=== PATIENT | female | born 1960 | race Caucasian/White ===

== ENCOUNTER → 2023-06-11 | Outpatient (CLI) | payer BC, MEDICARE ==
[2023-06-11 10:50] LABS: INR 0.9 (<1.2); Partial Thromboplastin Time 22.2 sec (22.0-30.0); Prothrombin Time 9.9 sec (9.0-12.0)
[2023-06-11 18:18] LABS: HGB 13.2 d/dL (12.0-15.0); MCH 29.7 pg (27.0-32.0); MCHC 31.4 d/dL (32.0-37.0); MCV 94.6 FL (80.0-97.0); Mean Platelet Volume 10.4 FL (9.5-12.2); NRBC Per 100 WBC 0 X 10*3/uL (0.00-0.01); Platelet Count 235 X 10*3/uL (140-440); RBC 4.44 X 10*6/uL (4.10-5.20); RDW 15.5 % (11.5-14.5); WBC 9.08 X 10*3/uL (4.50-10.00)
[2023-06-11 18:30] LABS: ALT 39 U/L (8-44); AST 33 U/L (13-35); Albumin 4.9 d/dL (3.8-4.9); Albumin/Globulin Ratio 1.69 Ratio (1.60-3.17); Alkaline Phosphatase 84 U/L (41-126); BUN/Creat Ratio 20.22 Ratio (12.00-20.00); Blood Urea Nitrogen 36.4 mg/dL (9.0-27.0); Calcium 10.5 mg/dL (8.7-10.3); Carbon Dioxide 23.9 mmol/L (21.6-31.8); Chloride 107 mmol/L (96-109); Globulin 2.9 d/dL (1.6-3.3); Glucose 93 mg/dL (70-110); Potassium 4.6 mmol/L (3.5-5.5); Sodium 143 mmol/L (135-145); Total Bilirubin 0.4 mg/dL (0.3-1.2); Total Protein 7.8 d/dL (6.2-8.2)
[2023-06-11 22:42] LABS: Appearance,Urine Clear (Clear); Bilirubin,Urine Negative (Negative); Blood,Urine Negative (Negative); Color,Urine Yellow (Yellow); Ketones,Urine Negative (Negative); Nitrite,Urine Negative (Negative); PH, Urine 5.5; Specific Gravity,Urine 1.015 (1.001-1.030); Urobilinogen,Urine 0.2 E.U./DL
== END | disposition home or self-care (01) ==
LOC: LABPAT 08:56
PROVIDERS: ATTEND Orthopaedic Surgery
DX: Z01.818 Encounter for other preprocedural examination (principal); M16.12 Unilateral primary osteoarthritis, left hip; R00.1 Bradycardia, unspecified
CPT/HCPCS: 80053; 81003; 83036; 85027; 85610; 85730; 87070; 93005

== ENCOUNTER → 2023-06-12 | Outpatient (CLI) | payer BC | END | disposition home or self-care (01) | LOC: LABPAT 08:33 | PROVIDERS: ATTEND Orthopaedic Surgery | DX: Z53.9 Procedure and treatment not carried out, unspecified reason (principal) ==

== ENCOUNTER → 2023-07-27 | Outpatient (CLI) | payer MEDICARE ==
[2023-07-27 10:08] LABS: HCT 41.8 % (34.0-46.0); HGB 13.4 gm/dL (11.4-16.0); MCH 29.8 pg (25.0-35.0); Mean Platelet Volume 7.5; Platelet Count 201 k/uL (150-450); RDW 14.7 % (11.5-15.5); WBC 7.3 k/uL (3.8-10.6)
[2023-07-27 10:16] LABS: Partial Thromboplastin Time 23.6 sec (22.0-30.0)
[2023-07-27 14:44] LABS: INR 0.9 (<1.2); Prothrombin Time 10.1 sec (9.0-12.0)
[2023-07-27 16:12] LABS: Appearance,Urine Clear (Clear); Bilirubin,Urine Negative (Negative); Blood,Urine Trace (Negative); Color,Urine Yellow (Yellow); Ketones,Urine Negative (Negative); Nitrite,Urine Negative (Negative); PH, Urine 5.5; Specific Gravity,Urine 1.012 (1.001-1.030); Urobilinogen,Urine 0.2 E.U./DL
[2023-07-27 16:16] LABS: Bacteria,Urine 1+ (None Seen)
[2023-07-27 16:29] LABS: ALT 36 U/L (8-44); AST 30 U/L (13-35); Albumin 4.8 d/dL (3.8-4.9); Albumin/Globulin Ratio 1.78 Ratio (1.60-3.17); Alkaline Phosphatase 79 U/L (41-126); BUN/Creat Ratio 18.71 Ratio (12.00-20.00); Blood Urea Nitrogen 31.8 mg/dL (9.0-27.0); Calcium 9.8 mg/dL (8.7-10.3); Carbon Dioxide 21.6 mmol/L (21.6-31.8); Chloride 108 mmol/L (96-109); Globulin 2.7 d/dL (1.6-3.3); Glucose 100 mg/dL (70-110); Potassium 4.4 mmol/L (3.5-5.5); Sodium 144 mmol/L (135-145); Total Bilirubin 0.4 mg/dL (0.3-1.2); Total Protein 7.5 d/dL (6.2-8.2)
== END | disposition home or self-care (01) ==
LOC: LABPAT 08:24
PROVIDERS: ATTEND Orthopaedic Surgery
DX: Z01.812 Encounter for preprocedural laboratory examination (principal); M16.12 Unilateral primary osteoarthritis, left hip
CPT/HCPCS: 80053; 81001; 85027; 85610; 85730; 87070

== ENCOUNTER → 2024-01-13 | Outpatient (CLI) | payer MEDICARE ==
[2024-01-13 12:18] LABS: INR 0.9 (<1.2); Partial Thromboplastin Time 23.6 sec (22.0-30.0); Prothrombin Time 10.2 sec (10.0-12.5)
[2024-01-13 15:54] LABS: HCT 41.8 % (37.2-46.3); HGB 13.5 g/dL (12.0-15.0); MCH 29.2 pg (27.0-32.0); MCHC 32.3 g/dL (32.0-37.0); MCV 90.3 FL (80.0-97.0); Mean Platelet Volume 9.9 FL (9.5-12.2); NRBC Per 100 WBC 0 X 10*3/uL (0.00-0.01); Platelet Count 203 X 10*3/uL (140-440); RBC 4.63 X 10*6/uL (4.10-5.20); RDW 14.9 % (11.5-14.5); WBC 6.99 X 10*3/uL (4.50-10.00)
[2024-01-13 16:11] LABS: ALT 36 U/L (8-44); AST 33 U/L (13-35); Albumin 4.5 g/dL (3.8-4.9); Alkaline Phosphatase 87 U/L (41-126); BUN/Creat Ratio 15.62 Ratio (12.00-20.00); Calcium 10.1 mg/dL (8.7-10.3); Carbon Dioxide 26.7 mmol/L (21.6-31.8); Chloride 106 mmol/L (96-109); Glucose 100 mg/dL (70-110); Sodium 144 mmol/L (135-145); Total Bilirubin 0.5 mg/dL (0.3-1.2); Total Protein 7.5 g/dL (6.2-8.2)
== END | disposition home or self-care (01) ==
LOC: LABPAT 10:50
PROVIDERS: ATTEND Orthopaedic Surgery
DX: Z01.818 Encounter for other preprocedural examination (principal); R00.1 Bradycardia, unspecified
CPT/HCPCS: 80053; 83036; 85027; 85610; 85730; 86850; 86900; 86901; 87070; 93005

== ENCOUNTER 2024-01-20 13:38 | Day surgery (SDC) | payer BC, MEDICARE ==
[2024-01-14 13:50] VITALS: BMI 35.5
[~2024-01-20 13:38] MED LIST: HYDROmorphone 0.5 MG/0.5 ML SYRINGE IVP PRN; LIDOCAINE 1% (10MG/ML) FOR IV START INTRADERMA PRN; MIDAZOLAM 2 MG/2 ML VIAL IV PRN; TRANEXAMIC 1,000 MG/100ML-NACL 1,000 MG in SALINE 1 100ML.BAG IV PRN; TRANEXAMIC 1,000 MG/100ML-NACL 1,000 MG in SALINE 1 100ML.BAG IVPB PRN; fentaNYL (PF) 50 MCG/ML 2 ML AMP IVP PRN
[2024-01-20] MEDS: LACTATED RINGERS 1,000 ML IV ONE ×2 (14:01→17:20)
[2024-01-20] MEDS: DEXAMETHASONE SOD PHOSPHATE 10 MG/ML 1 ML VIAL IV PRN (14:40)
[2024-01-20] MEDS: ONDANSETRON 4 MG/2 ML VIAL IVP ONE (14:40)
[2024-01-20] MEDS: DOCUSATE 100 MG CAP PO PRN (14:40)
[2024-01-20] MEDS: KETOROLAC 15 MG/ML 1 ML VIAL IVP PRN (14:40)
[2024-01-20] MEDS: VANCOMYCIN 1,000 MG in SODIUM CHLORIDE 0.9% 250 ML IVPB PRN (14:40)
[2024-01-20] MEDS: FAMOTIDINE 20 MG/2 ML VIAL IVP PRN (14:40)
[2024-01-20] MEDS: oxyCODONE ER 10 MG TAB.ER.12H PO PRN (14:40)
[2024-01-20] MEDS: ACETAMINOPHEN TAB 500 MG TAB PO PRN (14:40)
[2024-01-20] MEDS: MIDAZOLAM 2 MG/2 ML VIAL IVP ONE (14:47)
[2024-01-20] MEDS ORDERED: PROPOFOL 10 MG/ML 20 ML VIAL IV ONE (14:58)
[2024-01-20] MEDS ORDERED: fentaNYL (PF) 50 MCG/ML 2 ML AMP ONE (14:58)
[2024-01-20] MEDS ORDERED: MIDAZOLAM 2 MG/2 ML VIAL ONE (14:58)
[2024-01-20] MEDS ORDERED: PHENYLEPHRINE-0.9% NACL SYG 1,000 MCG/10 ML SYRINGE ONE (14:58)
[2024-01-20] MEDS ORDERED: HYDROmorphone (PF) 1 MG/ML ONE (14:58)
[2024-01-20] MEDS ORDERED: ePHEDrine 50 MG/ML 1 ML VIAL ONE (14:58)
[2024-01-20] MEDS ORDERED: SUCCINYLCHOLINE CHLORIDE 200 MG/10 ML VIAL IV ONE (14:58)
[2024-01-20] MEDS ORDERED: DEXAMETHASONE SOD PHOSPHATE 4 MG/ML 1 ML VIAL ONE (14:58)
[2024-01-20] MEDS ORDERED: ROCURONIUM 10 MG/ML (5 ML VIAL) IV ONE (14:58)
[2024-01-20] MEDS ORDERED: GLYCOPYRROLATE 0.2 MG/ML 2 ML VIAL ONE (14:58)
[2024-01-20] MEDS ORDERED: NEOSTIGMINE 1 MG/ML 10 ML VIAL ONE (14:58)
[2024-01-20] MEDS ORDERED: ROPIVACAINE 5 MG/ML 30 ML VIAL ONE (14:58)
[2024-01-20] MEDS ORDERED: LIDOCAINE 1% INJ 10MG/ML (20 ML MDV) ONE (14:58)
[2024-01-20] MEDS ORDERED: TRANEXAMIC 1,000 MG/100ML-NACL PREMIX BAG ONE (14:58)
[2024-01-20] MEDS ORDERED: NALOXONE 0.4 MG/ML 1 ML VIAL IV PRN (15:16)
[2024-01-20] MEDS ORDERED: MAGNESIUM HYDROXIDE 2,400 MG/30 ML CUP PO PRN (15:16)
[2024-01-20] MEDS ORDERED: ONDANSETRON 4 MG/2 ML VIAL IVP PRN (15:16)
[2024-01-20] MEDS ORDERED: HYDROmorphone 0.5 MG/0.5 ML SYRINGE IVP PRN ×2 (15:16)
[2024-01-20] MEDS ORDERED: HYDROmorphone 1 MG/ML 1 ML SYRINGE IVP PRN (15:16)
[2024-01-20] MEDS ORDERED: HYDROcodone/APAP 7.5-325MG 1 EACH TAB PO PRN (15:18)
[2024-01-20] MEDS: ROPIVACAINE/EPI/CLONIDINE/KET 50 ML SYRINGE MISCELLANE PRN (15:43)
--- NOTE | 2024-01-20 17:24 | P.OP ---
Date of Procedure: 01/20/24 Preoperative Diagnosis: Severe left hip osteoarthritis BMI 35.5 Postoperative Diagnosis: Same Procedure(s) Performed: Left direct anterior total hip arthroplasty Implants: 1. [place] Trident II Acetabular Cup, Size #52 2. [place] Insignia Size # Femoral Stem, High Offset 3. Biolox delta femoral head, 36 mm, -2.5 mm neck Anesthesia: GETA, regional Surgeon: Vincent Herman Fruit Farmworker #1: Hawa Morales Estimated Blood Loss (ml): 300 IV fluids (ml): 300 Pathology: none sent Condition: stable Disposition: PACU Indications for Procedure: I had a long discussion with the patient in the office on the potential risks and complications of an elective total hip replacement through a direct anterior approach. Risks discussed include, but are certainly not limited to, risks from anesthesia, superficial infection requiring local wound care or antibiotics, deep claire-prosthetic joint infection and the treatment required to eradicate infection, intraoperative fracture, postoperative periprosthetic fracture, damage to local blood vessels or nerves particularly the lateral femoral cutaneous nerve, delayed wound healing requiring local wound care or possibly surgical debridement, hip dislocation, leg length discrepancy, soft tissue irritation around the total hip implant such as iliopsoas tendinitis or trochanteric bursitis, wear and osteolysis from the implants, squeaking or audible noises, groin pain, thigh pain, heterotopic ossification, stiffness, aseptic loosening of the implants, dissatisfaction with surgical outcome, need for revision surgery, DVT, PE, swelling of the operative extremity, acute coronary event, stroke, failure to thrive, and possibly loss of life or limb. The patient understands that while these are the most common complications after an elective hip replacement there are certainly other less common complications possible. They were given ample time to ask questions regarding the potential complications of a hip replacement. Following our discussion the patient provided their verbal and written consent to go forward with an elective total hip replacement. Description of Procedure: The patient was identified in the preoperative holding area and the correct hip was marked with my initials. I reviewed the procedure and consent with the patient. All of their questions were answered. The patient was then brought back into the operating room by anesthesia. While on the [facility] anesthesia was administered by the anesthesia team. Preoperative antibiotics and tranexamic acid were also given. After the patient was under anesthesia I examined their ankles to determine their preoperative leg length discrepancy. The skin over the anterior aspect of the hip was shaved to remove hair over the site of planned incision. Both feet and ankles were padded with webril and boots for the [place] were applied. The patient was then carefully transferred onto the [place] table. A perineal post was immediately placed. The arms were placed on arm holders and were well-padded. Both boots were secured to the spars on the [place] table. The patient was positioned so that the pelvis was centered over the post. Nonsterile drapes were applied. A timeout was performed identifying the correct patient, operative extremity, and procedure. At this point fluoroscopy was brought in to take preoperative images of the pelvis and operative hip. Using the standing AP pelvis from the office as a template, a comparable image was obtained with fluoroscopy. A metallic bar was used to create a bi-ischial line for use as a reference to leg length adjustments during the procedure. Global offset was also measured on both the operative and nonoperative leg. Fluoroscopy was then brought out and a pre-scrub using a chlorhexidine scrub brush was performed. The operative limb was then prepped and draped in the standard sterile fashion. An anterior longitudinal incision was made lateral and distal to the ASIS. The skin and subcutaneous tissues were incised sharply. The underlying tensor fascia was identified and incised in its midportion. The fascia was dissected free from the underlying muscle and the muscle belly was retracted. A blunt tipped cobra retractor was placed over the superior neck under the muscle fibers of the gluteus minimus. The deep enveloping fascia of the tensor was incised. The anterior leash of vessels were then identified and cauterized. The fascia between the rectus and the capsule was then incised and the pre-capsular fat was excised. A second Cobra was placed inferior to the neck. The interval between the rectus and iliocapsularis and the hip capsule was developed and a retractor was placed carefully over the anterior rim of the acetabulum. A T-shaped anterior capsulotomy was performed. The superior capsular leaflet was left in place in the inferior capsular flap was excised. The Cobra retractors were placed intracapsularly. We then made a femoral neck osteotomy according to preoperative and intraoperative templating and confirmed the level of the osteotomy using fluoroscopic imaging. The femoral head was removed, passed off to the back table, and sized. The superior capsular flap was excised. Retractors were placed circumferentially exposing the acetabulum. We then circumferentially debrided the acetabulum free of labrum and osteophytes. The pulvinar was removed to fully visualize the cotyloid fossa. We then sequentially reamed to achieve peripheral fit and excellent bleeding subchondral bone. The socket was thoroughly irrigated. The acetabular component was i mpacted into the appropriate position using fluoroscopy to guide version, inclination, and depth of insertion taking care to have a comparable image of the AP pelvis to the standing image taken in the office. An excellent press-fit was achieved and final position was confirmed using fluoroscopy. The press fit was augmented with bony cancellus dome screws. The liner was then impacted into the socket. Attention was then turned to the femur. The remnant dorsal lateral capsule was excised. The short external rotators were visible and protected. A bone hook was used to confirm appropriate translation of the trochanter away from the acetabulum. The leg was then extended and adducted and the bone hook was used to elevate the femur for broaching. A box osteotome and blunt tipped canal john nd was then utilized to gain access to the femoral canal. We then sequentially broached the femur in appropriate anteversion until excellent torsional stability was achieved. The neck cut was brought flush to the trial broach with a calcar planar. A trial neck and head were then placed onto the broach and the hip was atraumatically reduced under direct visualization. External rotation to 90 was performed to assess stability. Fluoroscopy was brought in. An AP and lateral fluoroscopic image of the proximal femur was obtained to assess position and fill of the trial broach. An AP of the pelvis was then obtained and matched to the preoperative image taken. A bi-ischial bar was then placed and measurements were taken to assess changes in length and offset. The hip was then carefully dislocated, the proximal femur was exposed, and the trial implants were removed. The wound and proximal femur was thoroughly irrigated using sterile saline and pulsatile lavage. The final femoral implant was dispensed and gently tapped into place generating an excellent press-fit. The trunnion was cleansed and the final head was tapped into place to engage the Hamilton taper. The acetabulum was irrigated and visualized to be free of debris. The hip was carefully reduced. Stability was checked clinically with external rotation to 90 and there was no evidence of instability. Final fluoroscopic images were taken. The wound was then thoroughly irrigated and soaked with a dilute Betadine rinse for 3 minutes. 3 L of sterile saline was irrigated through the wound using pulsatile lavage. Local anesthetic cocktail was injected into the soft tissues around the surgical field. The wound was then closed in layers. A sterile dressing was placed over the surgical incision. The drapes were taken down and the patient was carefully transferred off of the [place] table. Following removal of the boots the leg lengths felt acceptable. The patient was then taken to recovery room having tolerated the procedure well. Hawa Morales PA-C was present skilled restaurant assistant manager due to the complexity of surgery for patient positioning, draping, exposure, retraction, closure of wound, application of dressing, and moving the patient. PLAN: The patient can weight-bear as tolerated on the operative extremity. DVT prophylaxis with aspirin 81 mg twice a day based on preoperative risk stratification. Physical therapy for gait training. Leave surgical dressing in place. Internal medicine for perioperative medical management.
[2024-01-20] MEDS: ONDANSETRON 4 MG/2 ML VIAL IVP PRN (18:30)
[2024-01-20] MEDS: droPERidol 5 MG/2 ML VIAL IVP ONE (19:55)
--- NOTE | 2024-01-20 21:12 | P.ANPRN ---
Procedure Note - Anesthesia - Nerve Block Performed Left Etienne Single Time Out Performed: Yes (1436) Date of Procedure: 01/20/24 Procedure Start Time: 14:36 Procedure Stop Time: 14:41 Location of Patient: PreOp Indication: Acute Post-Operative Pain, Requested by Surgeon Sedation Type: Sedate with meaningful contact maintained Preparation: Sterile Prep Position: Supine Catheter: None Needle Types: Pajunk Needle Gauge: 21 Ultrasound used to visualize needle placement: Yes Ultrasound used to observe medication spread: Yes Injectate: 0.5% Ropivacaine (see comment for volume) (21 mL of block solution containing 20 ML of 0.5% ropivacaine mixed with 4 MG of dexamethasone) Blood Aspirated: No Pain Paresthesia on Injection Noted: No Resistance on Injection: Normal Image Stored and Saved: Yes Events: Uneventful and Well Tolerated
[2024-01-20] MEDS: LACTATED RINGERS 1,000 ML IV SCH (21:31)
[2024-01-20] MEDS: SODIUM CHLORIDE 0.9% 1,000 ML IV SCH (21:32)
[2024-01-20] MEDS: ASPIRIN 81 MG PO SCH (21:38)
[2024-01-20] MEDS: SENNOSIDES-DOCUSATE SODIUM 1 EACH TAB PO SCH (21:38)
--- NOTE | 2024-01-21 07:50 | P.DS ---
Providers Date of admission: 01/20/2024 Attending physician: Vincent Herman Consults: 01/20/24 15:16 Consult Physician Routine Consulting Provider: Franchesca English Consult Reason/Comments: medical management Do you want consulting provider notified?: Yes Primary care physician: [facility] Course: The patient is a very pleasant 64-year-old female who is admitted under my care yesterday for an elective left hip replacement. Following an uncomplicated surgery she was transferred to orthopedic floor. She received 2 doses of postoperative antibiotics. She was transitioned from IV to oral pain medications. She was seen postoperative day #1 and was doing well. Her dressing was intact. Her thigh was soft. Femoral nerve function was intact. Distally she is able to actively plantarflex and dorsiflex her ankle and her toes. Internal medicine has been consulted. The patient will plan on discharging home later today if she passes physical therapy and is cleared by internal medicine. Plan - Discharge Summary Discharge Rx Participant: Yes New Discharge Prescriptions: New Aspirin 81 mg PO BID #60 tab Omeprazole 40 mg PO DAILY #30 cap HYDROcodone/APAP 5-325MG [Ollie 5-325] 1 - 2 tab PO Q6HR PRN #32 tab PRN Reason: Pain Docusate [Colace] 100 mg PO BID #28 capsule No Action Pravastatin Sodium [Pravachol] 40 mg PO PC-LUNCH Metoprolol Tartrate [Lopressor] 50 mg PO BID Turmeric Root Extract [Turmeric Curcumin] 500 mg PO DAILY Ascorbic Acid [Vitamin C] 500 mg PO DAILY lisinopriL [Zestril] 40 mg PO QAM Vitamin B Complex 1 each PO DAILY Discharge Medication List Ascorbic Acid [Vitamin C] 500 mg PO DAILY 06/19/23 [History] Metoprolol Tartrate [Lopressor] 50 mg PO BID 06/19/23 [History] Pravastatin Sodium [Pravachol] 40 mg PO PC-LUNCH 06/19/23 [History] Turmeric Root Extract [Turmeric Curcumin] 500 mg PO DAILY 06/19/23 [History] Vitamin B Complex 1 each PO DAILY 06/19/23 [History] lisinopriL [Zestril] 40 mg PO QAM 06/19/23 [History] Aspirin 81 mg PO BID #60 tab 03/07/24 [Rx] Docusate [Colace] 100 mg PO BID #28 capsule 01/21/24 [Rx] HYDROcodone/APAP 5-325MG [Ollie 5-325] 1 - 2 tab PO Q6HR PRN #32 tab 01/21/24 [Rx] Omeprazole 40 mg PO DAILY #30 cap 01/21/24 [Rx] Follow up Appointment(s)/Referral(s): Vincent Herman MD [Medical Doctor] - 2 Weeks Activity/Diet/Wound Care/Special Instructions: 1. Weight-bear as tolerated on your operative extremity unless instructed otherwise. Use a walker or other assistive device to ambulate. 2. Leave surgical dressing in place. If your dressing becomes saturated with blood, there is drainage, or the dressing becomes loose please contact the office. 3. It is okay to shower with your surgical dressing, but do not submerge in water (no hot tubs, bath's, swimming etc.) 4. Make sure to take her blood clot prevention medication as prescribed (aspirin, Eliquis, Xarelto, and Plavix are commonly prescribed medications for blood clot prevention) 5. While taking Ollie or Percocet for pain make sure you're taking a stool softener (Colace) and drink lots of water. 6. Keep all follow-up appointments as scheduled. You will usually be seen in 1-2 weeks following surgery. 7. Please contact the office with any questions or concerns [phone] Discharge Disposition: HOME WITH HOME HEALTH SERVICES
[2024-01-21 07:52] VITALS: BP 107/59; PULSE 52; TEMP 97.3
[2024-01-21] MEDS: HYDROcodone/APAP 7.5-325MG 1 EACH TAB PO PRN (08:15)
--- NOTE | 2024-01-21 08:50 | FL ---
EXAMINATION TYPE: FL guidance operating room, XR Hip Limited LT Intraoperative/procedural fluoroscopi c services were provided. Total fluoroscopy time is 37.2 seconds with a total of 6 submitted images t o PACS. Please see the operative/procedural note for further details. DAP: 2.0385 Gycm2
[2024-01-21 10:50] LABS: Basophils # (A) 0.01 X 10*3/uL (0.00-0.10); Basophils % (A) 0.1 %; Eosinophils # (A) 0 X 10*3/uL (0.04-0.35); Eosinophils % (A) 0 %; HCT 31.7 % (37.2-46.3); HGB 10.1 g/dL (12.0-15.0); Lymphocytes # (A) 0.42 X 10*3/uL (0.90-5.00); MCH 29.4 pg (27.0-32.0); MCHC 31.9 g/dL (32.0-37.0); MCV 92.4 FL (80.0-97.0); Mean Platelet Volume 9.9 FL (9.5-12.2); Monocytes # (A) 0.27 X 10*3/uL (0.20-1.00); Monocytes % (A) 2.5 %; NRBC Per 100 WBC 0 X 10*3/uL (0.00-0.01); Neutrophils # (A) 9.86 X 10*3/uL (1.80-7.70); Neutrophils % (A) 93.1 %; Platelet Count 125 X 10*3/uL (140-440); RBC 3.43 X 10*6/uL (4.10-5.20); RDW 15.7 % (11.5-14.5); WBC 10.59 X 10*3/uL (4.50-10.00)
[2024-01-21 11:20] VITALS: RESP 20
[2024-01-21] MEDS: SODIUM FERRIC GLUCONAT-SUCROSE 125 MG in SODIUM CHLORIDE 0.9% 100 ML IVPB ONE (12:55)
[2024-01-21] MEDS ORDERED: PRAVASTATIN SODIUM 40 MG TAB PO SCH (13:30)
--- NOTE | 2024-01-21 17:51 | P.CONS ---
History of Present Illness - Reason for Consult Consult date: 01/21/24 Medical management Requesting physician: Vincent Herman - Chief Complaint Left hip surgery - History of Present Illness This is a pleasant 64-year-old patient who follows with Dr. Ybarra. 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 Shunt was placed. No seizures since 2018. Hiatal hernia. Patient has now undergone left direct anterior total hip arthroplasty. Some pain is present. No nausea vomiting. Did tolerate her breakfast. Did ambulate with PT OT. Pain is reasonable. Review of systems: GEN.: None EYES: None HEENT: None NECK: None RESPIRATORY: None CARDIOVASCULAR: None GASTROINTESTINAL: None GENITOURINARY: None MUSCULOSKELETAL: [Joint pains LYMPHATICS: None HEMATOLOGICAL: None PSYCHIATRY: None NEUROLOGICAL: None Social history: . No smoking. Alcohol rarely. Physical examination: VITAL SIGNS: 97.3, 52, 20, 107 x 79, 92% room air GENERAL: BMI 35.5, reclining bed awake comfortable. EYES: Pupils equal. Conjunctiva nita l. HEENT: External appearance of nose and ears normal, oral cavity grossly normal. NECK: JVD not raised; masses not palpable. HEART: First and second heart sounds are normal; no edema. LUNGS: Respiratory rate normal; clear to auscultation. ABDOMEN: Soft, nontender, liver spleen not palpable, no masses palpable. PSYCH: Alert and oriented x3; mood and affect nita l. MUSCULOSKELETAL:No Clubbing/cyanosis;muscles-grossly intact. OA. Dressing over the old incision site NEUROLOGICAL: Cranial nerves grossly intact; no facial asymmetry, power and sensation grossly intact. LYMPHATICS: No lymph nodes palpable in the axilla and neck INVESTIGATIONS, reviewed in the clinical context: January 20: White count 10.5 hemoglobin 10.1 platelets 125 January 13: White count 6.9 hemoglobin 13.5 platelets 203 potassium 5 creatinine 1.6 Assessment plan: -Left total hip arthroplasty Aspirin for DVT prophylaxis. Pain control -Essential hypertension Patient takes a blood pressure every day. Told her stepwise to increase her blood pressure medications because currently blood pressure running low. Patient did understand the same. -Hyperlipidemia Pravachol 40 mg -Obesity BMI 35.5 Weight loss measures -Acute postprocedure blood loss anemia expected from surgery 1 unit of IV Ferrlecit given. Oral ferrous sulfate 325 p.o. twice daily. -Chronic kidney disease stage III likely nephrosclerosis Patient does follow-up with Dr. Sharpe. Keep appointment. Care was discussed with patient. Questions answered. Thank you Dr. Herman Past Medical History Past Medical History: CVA/TIA, Hyperlipidemia, Hypertension, Memory Impairment, Osteoarthritis (OA), Renal Disease, Seizure Disorder Additional Past Medical History / Comment(s): Hx CVA/ruptured aneurysm 2018 which caused seizures, shunt placed. No seizures since 2018. Hiatal hernia. History of Any Multi-Drug Resistant Organisms: MRSA Year Discovered:: 2009 MDRO Source:: Unknown Past Surgical History: Section, Joint Replacement, Orthopedic Surgery Additional Past Surgical History / Comment(s): Brain surgery in 2018 to repair aneurysm and 2nd surgery in 2019 to repair leaking at site, [facility] shunt, right hip replacement, left bunionectomy. Past Anesthesia/Blood Transfusion Reactions: No Reported Reaction Past Psychological History: No Psychological Hx Reported Smoking Status: Never smoker Past Alcohol Use History: Rare Past Drug Use History: None Reported - Past Family History Father Family Medical History: Cancer Mother Family Medical History: Cancer Medications and Allergies Home Medications Medication Instructions Recorded Confirmed Type Ascorbic Acid [Vitamin C] 500 mg PO DAILY 06/19/23 01/20/24 History Metoprolol Tartrate [Lopressor] 50 mg PO BID 06/19/23 01/20/24 History Pravastatin Sodium [Pravachol] 40 mg PO PC-LUNCH 06/19/23 01/20/24 History Turmeric Root Extract [Turmeric 500 mg PO DAILY 06/19/23 01/20/24 History Curcumin] Vitamin B Complex 1 each PO DAILY 06/19/23 01/20/24 History lisinopriL [Zestril] 40 mg PO QAM 06/19/23 01/20/24 History Aspirin 81 mg PO BID #60 tab 01/21/24 Rx Docusate [Colace] 100 mg PO BID #28 capsule 01/21/24 Rx Ferrous Sulfate [Feosol] 325 mg PO BID #60 tab 01/21/24 Rx HYDROcodone/APAP 5-325MG [[place] 1 - 2 tab PO Q6HR PRN #32 tab 01/21/24 Rx 5-325] Omeprazole 40 mg PO DAILY #30 cap 01/21/24 Rx Allergies Allergy/AdvReac Type Severity Reaction Status Date / Time No Known Allergies Allergy Verified 01/20/24 14:08 Physical Exam Vitals: Vital Signs Temp Pulse Pulse Resp BP BP Pulse Ox 01/21/24 06:50 97.3 F L 52 L 18 107/59 92 L 01/21/24 02:00 97.4 F L 53 L 17 92/60 95 01/20/24 21:59 52 L 99/57 90 L 01/20/24 21:29 50 L 105/56 99 01/20/24 21:14 50 L 114/66 91 L 01/20/24 20:59 48 L 108/55 96 01/20/24 20:30 56 L 96/57 92 L 01/20/24 20:10 52 L 16 109/52 91 L 01/20/24 20:00 54 L 15 131/61 98 01/20/24 19:30 54 L 17 102/55 94 L 01/20/24 19:00 52 L 16 125/61 98 01/20/24 18:30 50 L 17 98/43 95 01/20/24 18:15 56 L 14 98/51 94 L 01/20/24 18:00 55 L 15 106/54 92 L 01/20/24 17:45 66 16 93/53 92 L 01/20/24 17:30 65 16 88/48 98 01/20/24 17:15 99 F 63 12 93/53 99 01/20/24 15:00 87 16 127/60 98 01/20/24 14:15 99.2 F 88 16 124/59 95 Intake and Output 01/20/24 01/21/24 01/21/24 22:59 06:59 14:59 Intake Total 1800 Output Total 300 Balance 1500 Intake: IV 1800 Oral 0 Output: Estimated Blood Loss 300 Other: # Voids 1 2 Weight 99.8 kg Results CBC & Chem 7: 01/21/24 06:37
[2024-01-21] MEDS ORDERED: METOPROLOL TARTRATE 50 MG TAB PO SCH (21:00)
[2024-01-22] MEDS ORDERED: ASCORBIC ACID 500 MG TAB PO SCH (09:00)
[2024-01-22] MEDS ORDERED: NON FORMULARY DRUG (Vitamin B Complex [Vitamin B Complex] 1 EACH Capsule) PO SCH (09:00)
== END 2024-01-21 14:30 | disposition home health service (06) ==
LOC: OR 13:38 → 4SSUR 17:05 → OR 01-21 14:30
PROVIDERS: ATTEND Orthopaedic Surgery
DX: M16.12 Unilateral primary osteoarthritis, left hip (principal); G89.18 Other acute postprocedural pain; I12.9 Hypertensive chronic kidney disease with stage 1 through stage 4 chronic kidney disease, or unspecified chronic kidney disease; N18.30 Chronic kidney disease, stage 3 unspecified; E78.5 Hyperlipidemia, unspecified; F10.90 Alcohol use, unspecified, uncomplicated; E66.9 Obesity, unspecified; Z68.35 Body mass index [BMI] 35.0-35.9, adult; Z79.899 Other long term (current) drug therapy; Z82.49 Family history of ischemic heart disease and other diseases of the circulatory system; Z98.890 Other specified postprocedural states; G40.909 Epilepsy, unspecified, not intractable, without status epilepticus
CPT/HCPCS: 27130; 97161; 97166; 64447; 85025; 73501; C1776; J2250; J3370; J0330; J1100 ×2; J2710; J0690 ×2; J2405; J2001; J3010; J3490; J2916; J1170; J2795; J1885; J2704; J1790; J2371